=== PATIENT | male | born 1985 | race Caucasian/White ===

== ENCOUNTER → 2020-05-04 11:14 | Outpatient (BNVA) | payer BC, SELFPAY | PROVIDERS: PCP Internal Medicine; Referring Provider Internal Medicine; Visit Provider Dietitian, Registered | DX: K21.9 Gastro-esophageal reflux disease without esophagitis (principal); K58.9 Irritable bowel syndrome, unspecified; E66.9 Obesity, unspecified; Z68.33 Body mass index [BMI] 33.0-33.9, adult; Z71.3 Dietary counseling and surveillance | CPT/HCPCS: 97803 ==

== ENCOUNTER → 2020-05-07 15:47 | Outpatient (BNVA) | payer BC, SELFPAY | PROVIDERS: PCP Nurse Practitioner Family; Visit Provider Internal Medicine Gastroenterology | DX: Z76.89 Persons encountering health services in other specified circumstances (principal) ==

== ENCOUNTER → 2020-11-23 14:05 | Outpatient (BNVA) | payer BC, SELFPAY | PROVIDERS: Visit Provider Internal Medicine Gastroenterology ==

== ENCOUNTER 2021-01-06 06:19 | Outpatient (REF) | payer BC, SELFPAY ==
[2021-01-06 12:04] LABS: Alanine Aminotransferase 36 U/L (0-40); Albumin Level 4.4 g/dL (3.5-5.0); Alkaline Phosphatase 83 U/L (39-117); Anion Gap 11 (12-20); Aspartate Amino Transferase 19 U/L (5-37); Bilirubin Total 0.8 mg/dL (0.0-1.0); Blood Urea Nitrogen 14 mg/dL (9-16); Calcium 9.2 mg/dL (8.4-10.2); Carbon Dioxide 28 mmol/L (22-29); Chloride 103 mmol/L (96-108); Cholesterol 207 mg/dL; Estimated Glomerular Filt Rate > 60; Glucose Fasting 91 mg/dL (60-99); HDL Cholesterol 43 mg/dL; LDL Cholesterol Calculated 137 mg/dl; Potassium 3.9 mmol/L (3.3-5.1); Sodium 138 mmol/L (135-145); Total Protein 7.3 g/dL (6.5-8.0); Triglycerides 135 mg/dL
[2021-01-06 12:08] LABS: TSH reflex Free T4 1.75 uIU/mL (0.32-4.0)
[2021-01-12 09:18] LABS: Testosterone, Free 137.5 pg/mL (35.0-155.0); Testosterone, Total 603 ng/dL (250-1100)
== END 2021-01-06 06:20 | disposition home or self-care (01) ==
LOC: HO.HMGCLDS 06:19
PROVIDERS: PCP Nurse Practitioner Family; Visit Provider Nurse Practitioner Family
DX: Z00.00 Encounter for general adult medical examination without abnormal findings (principal)
CPT/HCPCS: 36415; 80053; 80061; 84402; 84403; 84443

== ENCOUNTER 2022-08-08 09:13 | Outpatient (REF) | payer BC, SELFPAY ==
[2022-08-08 11:19] LABS: MANUAL DIFF FLAG NO
[2022-08-08 11:32] LABS: Appearance Urine Clear; Color Urine Yellow; Glucose Urine UA Negative (Negative); Leukocyte Esterase Urine Negative (Negative); Nitrite Urine Negative (Negative); PH 6.5 (5.0-9.0); Urine Blood Negative (Negative); Urine Ketones Negative (Negative); Urine Protein Negative (Neg-Trace)
[2022-08-08 11:54] LABS: Basophils Absolute Auto 0.1 X10*3/uL (0.0-0.2); Basophils Percent Auto 0.8 % (0-2); Eosinophils Absolute Auto 0.2 X10*3/uL (0.0-0.4); Eosinophils Percent Auto 2.3 % (0-4); Hematocrit 48.7 % (42.0-52.0); Hemoglobin 16.7 g/dl (14.0-18.0); Imm Gran Abs Auto 0.03 X10*3/uL (0.00-0.03); Imm Gran Pct Auto 0.5 % (0.0-0.4); Lymphocytes Absolute Auto 2.6 X10*3/uL (1.2-4.9); Lymphocytes Percent Auto 39.2 % (20-40); Mean Corpuscular HGB Conc 34.3 g/dl (31.0-36.0); Mean Corpuscular Hemoglobin 32.2 pg (27.0-33.0); Mean Corpuscular Volume 93.8 fL (80.0-98.0); Mean Platelet Volume 9.4 fL (9.4-12.4); Monocytes Absolute Auto 0.8 X10*3/uL (0.1-1.2); Monocytes Percent Auto 12.7 % (2-11); Neutrophils Absolute Auto 2.9 x10*3/uL (2.0-8.3); Neutrophils Percent Auto 44.5 % (45-73); Platelet Count 279 X10*3/uL (160-400); Red Blood Count 5.19 X10*6/uL (4.60-5.80); Red Cell Distribution Width 12.1 % (11.0-16.0); White Blood Count 6.5 X10*3/uL (4.8-10.8)
[2022-08-08 13:55] LABS: Alanine Aminotransferase 39 U/L (0-40); Albumin Level 4.4 g/dL (3.5-5.0); Alkaline Phosphatase 88 U/L (39-117); Anion Gap 11 (12-20); Aspartate Amino Transferase 22 U/L (5-37); Bilirubin Total 0.7 mg/dL (0.0-1.0); Blood Urea Nitrogen 14 mg/dL (9-16); Calcium 9.5 mg/dL (8.4-10.2); Carbon Dioxide 29 mmol/L (22-29); Chloride 106 mmol/L (96-108); Cholesterol 199 mg/dL; Estimated Glomerular Filt Rate > 60; Glucose Fasting 104 mg/dL (60-99); HDL Cholesterol 50 mg/dL; LDL Cholesterol Calculated 126 mg/dl; Potassium 4.4 mmol/L (3.3-5.1); Sodium 142 mmol/L (135-145); Total Protein 7.4 g/dL (6.5-8.0); Triglycerides 117 mg/dL
[2022-08-08 14:13] LABS: TSH reflex Free T4 1.55 uIU/mL (0.32-4.0)
== END 2022-08-08 09:14 | disposition home or self-care (01) ==
LOC: HO.HMGCLDS 09:13
PROVIDERS: PCP Nurse Practitioner Family; Visit Provider Nurse Practitioner Family
DX: Z00.00 Encounter for general adult medical examination without abnormal findings (principal)
CPT/HCPCS: 36415; 80053; 80061; 81003; 84443; 85025

== ENCOUNTER 2023-07-20 15:23 | Outpatient (AMB) | payer BC, SELFPAY ==
--- NOTE | 2023-07-20 15:28 | MHC.PC.OV ---
Vital Signs 07/20/23 15:30 Height 5 ft 10 in Weight 230 lb BMI 33.0 BP 122/90 H Blood Pressure Location Lt brachial Position Sitting Pulse 102 H Pulse Source Pulse Oximeter Pulse Oximetry (%) 98 Oxygen Delivery Method Room Air Intake Visit Reasons: PE/MA r/s due to provider out Intake Note: Patient here for physical exam. Pt states he is getting over the flu but still has the cough present and would also like to talk about concentration issues while at work. Allergies No Known Allergies Allergy (Verified 07/20/23 15:33) Medication List - Last Reconciled 07/20/23 by MARSHAL Lozano clonazepam 0.5 mg PO DAILY fluoxetine 20 mg PO DAILY fluoxetine 40 mg PO DAILY omeprazole 20 mg PO DAILY 60 days Tobacco use date assessed: 07/20/23 Dental Screening Dental Screen Date: 07/20/23 Did you have a dental visit in the last 12 months?: Yes Did you have a dental problem in the last 6 months where you did not have access to dental care?: No Was dental information given to patient?: Patient has dentist HPI PE/MA r/s due to provider out HPI Details Pt is here for a PE. Will order labs. Pt reports a scalp cyst to the crown of his head. Will refer to general surgery. [facility] Medical History History of flexible sigmoidoscopy (08/01/19) Diverticulosis of colon Irritable bowel syndrome with diarrhea Esophageal dysphagia Surgical History Hx of appendectomy Hx of hernia repair History of esophagogastroduodenoscopy (EGD) (08/01/19) Family History Maternal Grandfather History of colon cancer Maternal Grandmother Hx of Parkinson's disease Paternal Grandfather Stroke Father Stroke Mother No problems noted. Social History Household Members Other:: parents Alcohol intake: current Alcohol intake frequency: holidays/special occasions only Patient Tobacco Use Status: Never used Tobacco (when he drinks ) e-Cigarette/Vaping Use: Never Used Second Hand Smoke Exposure: No service: No Current occupational status: employed Current occupation: Delivery [employer] Cognitive needs: No Hearing needs: No Vision needs: No Questionnaire PHQ-9 Over the last 2 weeks, how often have you been bothered by any of the following problems? 1. Little interest or pleasure in doing things: several days 2. Feeling down, depressed, or hopeless: more than half the days 3. Trouble falling or staying asleep, or sleeping too much: more than half the days 4. Feeling tired or having little energy: more than half the days 5. Poor appetite or overeating: several days 6. Feeling bad about yourself - or that you are a failure or have let yourself or your family down: several days 7. Trouble concentrating on things, such as reading the newspaper or watching television: several days 8. Moving or speaking so slowly that other people could have noticed. Or the opposite - being so fidgety or restless that you have been moving around a lot more than usual: not at all 9. Thoughts that you would be better off or of hurting yourself in some way: several days Total score: 11 Depression Screening Interpretation: Positive Depression Screening Done: Yes 58454 - PHQ-9 Billing: Yes Source: Developed by Drs. Herber Leyva, Della Lemon, Miles Holcomb and colleagues, with an educational phoebe from [employer]. Thrive Questionnaire Date Thrive assessed: 07/20/23 I am a: Patient What is your living situation today?: I have a steady place to live Within the past 12 months, did the food you bought not last and you didn't have the money to get more?: Never true Within the past 12 months, did you worry whether your food would run out before you got money to buy more?: Never true Do you have trouble paying for medicines?: No Do you have trouble getting transportation to medical appointments?: No Do you have trouble paying your heating and electricity bill?: No Do you have trouble taking care of your child, family member or friend?: No Do you have trouble with day-to-day activities such as bathing, preparing meals, shopping, managing finances, etc.?: No Are you currently unemployed and looking for a job?: No Are you interested in more education?: Yes AUDIT C Alcohol Use Questionnaire (AUDIT-C) 1. How often do you have a drink containing alcohol?: 2-4 times a month 2. How many drinks containing alcohol do you have on a typical day when you are drinking?: 1 or 2 3. How often do you have six or more drinks on one occasion?: Never Total Score: 2 Score Reviewed/Action Taken: No CARLA-7 AMB Questionnaire CARLA-7 Date CARLA - 7 assessed: 07/20/23 Feeling nervous, anxious, or on edge: 1 = Several days Not being able to stop or control worryin = Several days Worrying too much about different things: 1 = Several days Trouble relaxin = Several days Being so restless that it is hard to sit still: 1 = Several days Becoming easily annoyed or irritable: 0 = Not at all Feeling afraid as if something awful might happen: 0 = Not at all Total CARLA-7 score (0-4 normal; 5-9 mild; 10-14 moderate; 15-21 severe): 5 Source: Developed by Drs. Herber Leyva, Della Lemon, Miles Holcomb and colleagues, with an educational phoebe from [employer]. CARLA-7 Assessment Billing CARLA-7 Assessment Tool: CARLA-7 Assessment 39106 Review of Systems Const Denies chills and Denies fever(s) Eyes Denies blurry vision ENT Denies vertigo, Denies dizziness and Denies sore throat Card Denies chest pain at rest, Denies chest pain with activity, Denies diaphoresis, Denies dyspnea and Denies dyspnea on exertion Resp Denies cough, Denies dyspnea, Denies dyspnea on exertion and Denies wheezing GI Denies abdominal pain, Denies melena, Denies hematochezia, Denies constipation, Denies diarrhea and Denies loose stools Denies hematuria Musc Denies numbness and Denies tingling Skin/Breast Denies lesions Neuro Denies vertigo, Denies dizziness, Denies numbness and Denies tingling Psych Denies anxiety, Denies depression, Denies homicidal ideation, Denies suicidal ideation and Denies other (substance abuse) Aller/Immun Denies wheezing Physical exam (Primary Care) Vital Signs: Last Vital Signs Pulse 102 H 07/20/23 15:30 BP 122/90 H 07/20/23 15:30 Pulse Ox 98 07/20/23 15:30 Oxygen Delivery Method Room Air 07/20/23 15:30 BMI result Body Mass Index 33.0 Tobacco/Smoking Status: Tobacco use Status Tobacco use date assessed 07/20/23 07/20/23 15:36 Patient Tobacco Use Status Never used Tobacco (when he 07/20/23 15:36 drinks ) e-Cigarette/Vaping Use Never Used 07/20/23 15:29 Depression Screening Interpretation: Positive Thrive Assessment: Date of Thrive Assessment Date Thrive assessed 01/07/21 07/20/23 15:29 Const General: cooperative Nutritional Appearance: obese Orientation/consciousness: patient oriented x3 HENMT Head: Yes normal to inspection, Yes normocephalic and Yes atraumatic Ears: TM's normal bilaterally Eyes General: appearance normal, both eyes and all related structures Alignment and Position: alignment normal and position normal Neck Neck: Yes normal visual inspection and Yes no lymphadenopathy Thyroid: Thyroid normal Resp Effort & Inspection: normal respiratory effort Auscultation: clear to auscultation bilaterally Cardio Rate: regular rate Rhythm: regular rhythm Heart sounds: S1 normal heart sound present, S2 normal heart sound present and no murmurs GI Palpation (GI): Soft to palpation and nontender Auscultation: normal bowel sounds Male General Exam: Yes normal external exam Penis: normal penis Scrotum: scrotum normal, testes descended bilaterally and no inguinal hernias Testes: no testicular mass Skin Other: crown of head with scalp cyst, not tender with touch Rashes: no rashes Neuro General: patient oriented x3, moves all extremities, no focal motor deficits and deep tendon reflexes 2+ bilaterally Romberg Test: Negative Psych Appearance: grossly normal Mental Status: mental status grossly normal Speech and movement: Normal speech and movement present Affect: normal affect Attitude: cooperative Thought process: Normal thought process present Thought content: Normal thought content present Insight: Good insight present (Psych) Judgement: Good judgement present (Psych) Assessment and Plan Assessment & Plan (1) Physical exam: Code(s): Z00.00 - Encounter for general adult medical examination without abnormal findings Plan: Labs ordered (2) Scalp cyst: Code(s): L72.9 - Follicular cyst of the skin and subcutaneous tissue, unspecified Plan: Referred to general surgery (3) Elevated BP without diagnosis of hypertension: Code(s): R03.0 - Elevated blood-pressure reading, without diagnosis of hypertension Plan The patient agreed to the use of a director biomedical engineering for this encounter. Scribed for GINA Eaton-NICKO by Teresa Adams director biomedical engineering, on 07/20/2023 at 15:45 EST. Orders: Orders Complete Blood Count Auto Diff Today Z00.00 - Encounter for general adult medical examination without abnormal findings UA CC w/rflx Micro + Cult Today Z00.00 - Encounter for general adult medical examination without abnormal findings Lipid Panel Today Z00.00 - Encounter for general adult medical examination without abnormal findings Comprehensive [place]. Panel Fast Today Z00.00 - Encounter for general adult medical examination without abnormal findings TSH reflex Free T4 Today Z00.00 - Encounter for general adult medical examination without abnormal findings Referrals General Surgery Referral L72.9 - Follicular cyst of the skin and subcutaneous tissue, unspecified Coding Level of Care Code Est Pt Prev Care 18-39y(88653) Diagnoses Physical exam Z00.00 Scalp cyst L72.9 Elevated BP without diagnosis of hypertension R03.0 Additional Codes CARLA-7 Assessment Billing - CARLA-7 Assessment Tool: CARLA-7 Assessment 52560 ([id number])
[2023-07-20 15:30] VITALS: BP 122/90; PULSE 102; O2SAT 98; BMI 33.0
== END 2023-07-20 16:00 | disposition home or self-care (01) ==
PROVIDERS: PCP Nurse Practitioner Family; Visit Provider Nurse Practitioner Family
DX: Z00.00 Encounter for general adult medical examination without abnormal findings (principal); L72.9 Follicular cyst of the skin and subcutaneous tissue, unspecified; R03.0 Elevated blood-pressure reading, without diagnosis of hypertension
CPT/HCPCS: 99395

== ENCOUNTER 2024-11-15 08:08 | Outpatient (AMB) | payer BC, SELFPAY ==
--- NOTE | 2024-11-15 08:23 | AM.OFFVISNUR ---
Intake Visit Reasons: EP Sharp chest pain 1 month off and on Allergies No Known Allergies Allergy (Verified 07/20/23 15:33) Nursing Note Pt came into the [facility] clinic c/o intermittent chest pain (sharp) x 1 month. Pt stated chest pain at rest, ambulating, working. Pt stated that he takes medication Omeprazole and an non-drowsy allergy medication. Pt a/o x 3 speaks in full sentences. Vss 156/106(Left)-100-96% on room air. Lungs - cta. Heart sounds - regular. Pt stated that he has gained 30lbs within 6 months. CONNOR (Letty C.) aware. Pt is no apparent distress. Coding
--- NOTE | 2024-11-15 08:28 | AM.OFFWIN_ITS ---
Intake Vital Signs 11/15/24 08:30 Height 5 ft 10 in Weight 273 lb BMI 39.2 BP 132/90 H Blood Pressure Location Rt brachial Position Sitting Pulse 99 Pulse Source Pulse Oximeter Pulse Oximetry (%) 98 Oxygen Delivery Method Room Air Intake Visit Reasons: EP Sharp chest pain 1 month off and on Intake Note: Patient here for sharp chest pain that has been present on and off for about 1 month now. he states this has happened in the past and was seen by a die finisher. Patient Tobacco Use Status: Never used Tobacco (when he drinks ) Allergies No Known Allergies Allergy (Verified 11/15/24 08:31) Medication List - Last Reconciled 11/15/24 by Karen Bello MD cetirizine (Zyrtec) 10 mg PO DAILY PRN clonazepam 0.5 mg PO DAILY omeprazole 20 mg PO DAILY Do you need a note to return to daycare/school/sports/work: No HPI EP Sharp chest pain 1 month off and on HPI Details History - The patient is a 39-year-old male pres enting with sharp chest pain. - Reports intermittent sharp chest pains located to the left of the midline, approximately where his heart is located. - The chest pain began around one month ago and occurs randomly without a specific frequency or pattern; lasts for a split second to two seconds, sometimes occurring in clusters. - Describes the severity and quality as sharp, but denies any radiation to the arm, cheek, or chin. - Reports no association with physical a ctivity, eating, or changes in position such as laying down. - Similar symptoms were experienced appr oximately 10 years ago, at that time evaluated by a die finisher with an Electrocardiogram (EKG) performed and found to be normal. - Family history is significant for stro kes in the patient's father, occurring in his mid-40s, and paternal grandfather. 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 - Reports no pain upon movement of the a emeterio or taking a deep breath. - Current low-density lipoprotein (LDL) level is 126 mg/dL, with no reported history of cholesterol issues. Problem List - Sharp chest pain - Reflux (GERD) - Family history of cerebrovascular acci dent (CVA) - obesity with a BMI of 39 Patient Instructions - Continue taking omeprazole for reflux increase the dose to twice daily. - go through the stress test ordered - EKG is completed. Which came back wi thin normal limit - Report any changes in symptoms or incr eased frequency or severity of chest pain immediately. If chest pain gets worse go to emergency room Review of Systems - General: No fever no chills - Neurological: No headaches no dizziness - Ear nose throat: No sore throat no hearing difficulty no ear pain - Cardiovascular: No syncope, no palpitations - Gastrointestinal: No nausea vomiting or diarrhea - Endocrine: No polyuria polydipsia no heat intolerance - Genitourinary: No dysuria , no blood in urine Physical Exam - General: No acute distress - HEENT: No acute findings - Neck: Supple - Respiratory system: Able to talk in f ull sentences, no audible wheeze - Cardiovascular: S1-S2 regular in rate and rhythm - Gastrointestinal: No pain - Extremities: No new findings - RESIDENCE LEASING AGENT: Alert awake oriented x3 motor se nsory intact - Skin: Normal turgor PFSH Medical History History of flexible sigmoidoscopy (08/01/19) Diverticulosis of colon Irritable bowel syndrome with diarrhea Esophageal dysphagia Surgical History Hx of appendectomy Hx of hernia repair History of esophagogastroduodenoscopy (EGD) (08/01/19) Family History Maternal Grandfather History of colon cancer Maternal Grandmother Hx of Parkinson's disease Paternal Grandfather Stroke Father Stroke Mother No problems noted. Social History Household Members Other:: parents Alcohol intake: current Alcohol intake frequency: holidays/special occasions only Patient Tobacco Use Status: Never used Tobacco (when he drinks ) e-Cigarette/Vaping Use: Never Used Second Hand Smoke Exposure: No service: No Current occupational status: employed Current occupation: Delivery [employer] Cognitive needs: No Hearing needs: No Vision needs: No Physical Exam Vital Signs: Last Vital Signs Pulse 99 11/15/24 08:30 BP 132/90 H 11/15/24 08:30 Pulse Ox 98 11/15/24 08:30 Oxygen Delivery Method Room Air 11/15/24 08:30 Office Procedures EKG 24309-[id number], Complete Assessment & Plan Assessment & Plan (1) Chest pain: Code(s): R07.9 - Chest pain, unspecified Qualifiers: Chest pain type: precordial pain Qualified Code(s): R07.2 - Precordial pain (2) Gastro-esophageal reflux disease without esophagitis: Code(s): K21.9 - Gastro-esophageal reflux disease without esophagitis (3) Obesity due to excess calories: Code(s): E66.09 - Other obesity due to excess calories Qualifiers: Obesity classification: adult class 2 (BMI 35 - 39.9) Serious obesity comorbidity presence: without serious comorbidity Body mass index: BMI 39.0- 39.9 Qualified Code(s): E66.812 - Obesity, class 2; E66.09 - Other obesity due to excess calories; Z68.39 - Body mass index [BMI] 39.0-39.9, adult (4) Family history of stroke: Code(s): Z82.3 - Family history of stroke Plan History - The patient is a 39-year-old male presenting with sharp chest pain. - Reports intermittent sharp chest pains located to the left of the midline, approximately where his heart is located. - The chest pain began around one month ago and occurs randomly without a specific frequency or pattern; lasts for a split second to two seconds, sometimes occurring in clusters. - Describes the severity and quality as sharp, but denies any radiation to the arm, cheek, or chin. - Reports no association with physical activity, eating, or changes in position such as laying down. - Similar symptoms were experienced approximately 10 years ago, at that time evaluated by a die finisher with an Electrocardiogram (EKG) performed and found to be normal. - Family history is significant for strokes in the patient's father, occurring in his mid-40s, and paternal grandfather. 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 - Reports no pain upon movement of the arms or taking a deep breath. - Current low-density lipoprotein (LDL) level is 126 mg/dL, with no reported history of cholesterol issues. Problem List - Sharp chest pain - Reflux (GERD) - Family history of cerebrovascular accident (CVA) - obesity with a BMI of 39 Patient Instructions - Continue taking omeprazole for reflux increase the dose to twice daily. - go through the stress test ordered - EKG is completed. Which came back within normal limit - Report any changes in symptoms or increased frequency or severity of chest pain immediately. If chest pain gets worse go to emergency room Orders: Orders CA stress test Today R07.9 - Chest pain, unspecified Coding Level of Care Code Est Pt Level 4 (27746) Diagnoses Precordial pain R07.2 Chest pain type: precordial pain Gastro-esophageal reflux disease without esophagitis K21.9 Class 2 obesity due to excess calories without serious comorbidity with body mass index (BMI) of 39.0 to 39.9 in adult E66.812; E66.09; Z68.39 Obesity classification: adult class 2 (BMI 35 - 39.9) Serious obesity comorbidity presence: without serious comorbidity Body mass index: BMI 39.0-39.9 Family history of stroke Z82.3 CPT Codes EKG - CPT: 73607-[id number], Complete ([id number])
[2024-11-15 08:30] VITALS: BP 132/90; PULSE 99; O2SAT 98; BMI 39.2
== END 2024-11-15 09:15 | disposition home or self-care (01) ==
PROVIDERS: PCP Nurse Practitioner Family; Visit Provider Internal Medicine
DX: R07.2 Precordial pain (principal); K21.9 Gastro-esophageal reflux disease without esophagitis; E66.812 Obesity, class 2; E66.09 Other obesity due to excess calories; Z68.39 Body mass index [BMI] 39.0-39.9, adult; Z82.3 Family history of stroke

== ENCOUNTER → 2024-11-15 08:08 | Outpatient (BNVA) | payer BC, SELFPAY | PROVIDERS: PCP Nurse Practitioner Family; Visit Provider Internal Medicine | DX: R07.2 Precordial pain (principal); K21.9 Gastro-esophageal reflux disease without esophagitis; E66.812 Obesity, class 2; E66.09 Other obesity due to excess calories; Z68.39 Body mass index [BMI] 39.0-39.9, adult; Z79.899 Other long term (current) drug therapy; Z82.3 Family history of stroke | CPT/HCPCS: 93005 ==

== ENCOUNTER → 2025-01-07 08:08 | Outpatient (REF) | payer OTHER, SELFPAY ==
--- NOTE | 2025-01-07 08:11 | CA_ITS ---
Acquisition Time: 2025-01-07 08:19:28 Total Exercise Time: 00:07:38 Test Indications: CHEST PAIN Medications: Protocol: CONRADO Max HR: 153 BPM 84% of Pred: 181 BPM Max BP: 146/86 mmHG Max Work Load: 9.5 METS Exercise stress test with exercise 7 mins 38 secs of Conrado Protocol, achieving 84% MPHR, with reports of SOB, no chest pain, without any arrythmias, with normotensive response to exercise. Without EKG chnages meeting criteria for ischemia. In recovery, pt's breathing improved back to baseline. Test reviewed with Dr. Amado. Referred By: Karen Bello Electronically Signed By: Marcel Alonzo
== END ==
LOC: HO.CARD 08:08
PROVIDERS: Visit Provider Internal Medicine
DX: R07.9 Chest pain, unspecified (principal)
CPT/HCPCS: 93017

== ENCOUNTER → 2025-01-07 08:11 | Outpatient (BNV) | payer OTHER, SELFPAY | DX: R06.02 Shortness of breath (principal) | CPT/HCPCS: 93016; 93018 ==

== ENCOUNTER 2025-02-26 10:16 | Outpatient (REF) | payer OTHER, SELFPAY ==
[2025-02-26 13:24] LABS: MANUAL DIFF FLAG NO
[2025-02-26 13:38] LABS: Appearance Urine Clear; Glucose Urine UA Negative (Negative); PH 7.0 (5.0-9.0); Specific Gravity - Urine 1.020 (1.005-1.025)
[2025-02-26 13:43] LABS: Hematocrit 48.6 % (42.0-52.0); Hemoglobin 17.1 g/dl (14.0-18.0); Imm Gran Abs Auto 0.02 X10*3/uL (0.00-0.03); Imm Gran Pct Auto 0.3 % (0.0-0.4); Lymphocytes Absolute Auto 2.5 X10*3/uL (1.2-4.9); Mean Corpuscular HGB Conc 35.2 g/dl (31.0-36.0); Mean Corpuscular Hemoglobin 31.6 pg (27.0-33.0); Mean Corpuscular Volume 89.8 fL (80.0-98.0); NRBC Abs Auto 0.000 X10*3/uL (0.0-0.012); NRBC Pct Auto 0.0 /100WBC (0.0-0.2); Platelet Count 316 X10*3/uL (160-400); Red Blood Count 5.41 X10*6/uL (4.60-5.80); White Blood Count 6.2 X10*3/uL (4.8-10.8)
[2025-02-26 14:19] LABS: Alanine Aminotransferase 56 U/L (0-40); Albumin Level 4.6 g/dL (3.5-5.0); Alkaline Phosphatase 98 U/L (39-117); Anion Gap 12 (12-20); Aspartate Amino Transferase 33 U/L (5-37); Blood Urea Nitrogen 12 mg/dL (9-16); Calcium 9.3 mg/dL (8.4-10.2); Carbon Dioxide 24 mmol/L (22-29); Chloride 106 mmol/L (96-108); Cholesterol 203 mg/dL (<200); Estimated Glomerular Filt Rate > 60; HDL Cholesterol 39 mg/dL (>40); Potassium 4.0 mmol/L (3.3-5.1); Sodium 138 mmol/L (135-145); Total Protein 7.6 g/dL (6.5-8.0); Triglycerides 127 mg/dL (<150)
== END 2025-02-26 10:17 | disposition home or self-care (01) ==
LOC: HO.HMGCLDS 10:16
PROVIDERS: PCP Nurse Practitioner Family; Visit Provider Nurse Practitioner Family
DX: Z00.00 Encounter for general adult medical examination without abnormal findings (principal); L72.9 Follicular cyst of the skin and subcutaneous tissue, unspecified; R00.2 Palpitations; R07.2 Precordial pain; G47.33 Obstructive sleep apnea (adult) (pediatric); K42.9 Umbilical hernia without obstruction or gangrene
CPT/HCPCS: 36415; 80053; 80061; 81003; 84443; 85025; 96127

== ENCOUNTER 2025-02-26 10:16 | Outpatient (AMB) | payer OTHER, SELFPAY ==
[2025-02-26 10:23] VITALS: BP 142/100; PULSE 78; RESP 16; TEMP 36.9; O2SAT 98; BMI 38.7
--- NOTE | 2025-02-26 10:23 | A.OFFPC_ITS ---
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 Accompanied by: Self / Same As Patient Allergies No Known Allergies Allergy (Verified 11/15/24 08:31) Medication List - Last Reconciled 02/26/25 by GINA Lozano- cetirizine (Zyrtec) 10 mg PO DAILY PRN clonazepam 0.5 mg PO DAILY omeprazole 20 mg PO DAILY Tobacco use date assessed: 02/26/25 Dental Screening Dental Screen Date: 02/26/25 Did you have a dental visit in the last 12 months?: Yes Did you have a dental problem in the last 6 months where you did not have access to dental care?: No Was dental information given to patient?: Patient has dentist HPI Med.review HPI Details Chief Complaint The patient presents with chest discomfort and palpitations. History of Present Illness The patient is a 39-year-old male presenting with chest discomfort and palpitations. The chest pain is sharp, located in the sternal region, and lasts milliseconds, occurring intermittently without change with movement or palpation. Previous evaluations including an EKG and a stress test were benign, but symptoms persist. The patient also reports palpitations, prompting further investigation with an echocardiogram and a Holter monitor. Additionally, a large indurated cyst is present on the crown of the scalp. The patient acknowledges recent weight gain, potentially affecting his blood pressure, which remains stable. His diet has been off, affecting his weight. Hx of BAUTISTA, pt reports he is being told his snoring is excessive. Not using a cpap, could not tolerate it. WIll refer him back to sleep medicine, but i dont know what else can be done. Social History - Education: The patient is planning to attend nursing school. - Diet: The patient reports his diet has been off, contributing to weight gain. Health Maintenance - Weight management: Discussed the impac t of weight gain on blood pressure and the need for weight loss. Review of Systems - Cardiovascular: Reports chest pain and palpitations. Denies shortness of breath. - Gastrointestinal: Denies abdominal aziza n, blood in stool, constipation, or diarrhea. - Psychiatric: Denies suicidal or homici rula ideation. - General: Denies fever or chills. Physical Exam General: Cooperative, healthy appearing, comfortable, no acute distress and well developed Orientation: Patient oriented x3 Limitations: No limitations Head: indurated cyst on the crown of the scalp Ears: Hearing grossly normal bilaterally Nose: Normal external nose present Face and sinus: Normal facial exam Eyes: Appearance normal, both eyes and all related structures Neck: Normal visual inspection and Yes full ROM Respiratory: Normal respiratory effort and able to speak in complete sentences. Clear to auscultation bilaterally Cardiovascular: Regular rate and rhythm. Normal S1 and S2 GI: Normal to inspection. Soft to palpation and nontender Skin: No other rashes or lesions noted Neuro: Patient oriented x3 Extremities: Normal to inspection. no pain with palpation of sternum/or movement of upper torso side to side. Results - Tests and Diagnostics: EKG and stress test results were benign. Plan The plan includes obtaining an echocardiogram and a Holter monitor to further evaluate the patient's palpitations and chest discomfort. The patient is advised to focus on weight loss to help manage his blood pressure, which is currently on the higher side of normal. The large cyst on the scalp will be monitored, and further intervention will be considered if necessary. Discussion Notes I discussed with the patient the need for an echocardiogram and Holter monitor to further investigate his chest discomfort and palpitations. We also talked about the importance of weight management in controlling his blood pressure/sleep apnea. The patient understands the plan and agrees to follow up as needed. Patient Instructions - Follow up with an echocardiogram and H olter monitor as scheduled. - Focus on weight loss through diet and exercise to help manage blood pressure. - Monitor the cyst on the scalp and repo rt any changes. -follow up with sleep med COUNT INCLUDES [facility] Medical History History of flexible sigmoidoscopy (08/01/19) Diverticulosis of colon Irritable bowel syndrome with diarrhea Esophageal dysphagia Surgical History Hx of appendectomy Hx of hernia repair History of esophagogastroduodenoscopy (EGD) (08/01/19) Family History Maternal Grandfather History of colon cancer Maternal Grandmother Hx of Parkinson's disease Paternal Grandfather Stroke Father Stroke Mother No problems noted. Social History Household Members Other:: parents Alcohol intake: current Alcohol intake frequency: holidays/special occasions only Patient Tobacco Use Status: Never used Tobacco (when he drinks ) e-Cigarette/Vaping Use: Never Used Second Hand Smoke Exposure: No service: No Current occupational status: employed Current occupation: Delivery Insurance Cognitive needs: No Hearing needs: No Vision needs: No Questionnaire PHQ-9 Over the last 2 weeks, how often have you been bothered by any of the following problems? 1. Little interest or pleasure in doing things: more than half the days 2. Feeling down, depressed, or hopeless: more than half the days 3. Trouble falling or staying asleep, or sleeping too much: more than half the days 4. Feeling tired or having little energy: more than half the days 5. Poor appetite or overeating: not at all 6. Feeling bad about yourself - or that you are a failure or have let yourself or your family down: more than half the days 7. Trouble concentrating on things, such as reading the newspaper or watching television: not at all 8. Moving or speaking so slowly that other people could have noticed. Or the opposite - being so fidgety or restless that you have been moving around a lot more than usual: not at all 9. Thoughts that you would be better off or of hurting yourself in some way : more than half the days Total score: 12 Depression Screening Interpretation: Positive (denies any si or hi, pt is looking into finding a therapist) Depression Screening Follow-up: Existing condition Depression Screening Done: Yes 47126 - PHQ-9 Billing: Yes Source: Developed by Drs. Herber Leyva, Della Lemon, Miles Holcomb and colleagues, with an educational phoebe from [employer]. Thrive Questionnaire Date Thrive assessed: 02/24/25 I am a: Patient What is your living situation today?: I have a steady place to live Within the past 12 months, did the food you bought not last and you didn't have the money to get more?: Never true Within the past 12 months, did you worry whether your food would run out before you got money to buy more?: Never true Do you have trouble paying for medicines?: No Do you have trouble getting transportation to medical appointments?: No Do you have trouble paying your heating and electricity bill?: No Do you have trouble taking care of your child, family member or friend?: No Do you have trouble with day-to-day activities such as bathing, preparing meals, shopping, managing finances, etc.?: No Are you currently unemployed and looking for a job?: No Are you interested in more education?: No Please select the resources that you would like help with: None Currently or been in a relationship where the following occur: No concerns reported THRIVE Score: 0 AUDIT C Alcohol Use Questionnaire (AUDIT-C) 1. How often do you have a drink containing alcohol?: 2-4 times a month 2. How many drinks containing alcohol do you have on a typical day when you are drinking?: 1 or 2 3. How often do you have six or more drinks on one occasion?: Less than monthly Total Score: 3 Score Reviewed/Action Taken: Yes CARLA-7 AMB Questionnaire CARLA-7 Date CARLA - 7 assessed: 02/26/25 Feeling nervous, anxious, or on edge: 0 = Not at all Not being able to stop or control worryin = Not at all Worrying too much about different things: 1 = Several days Trouble relaxin = Several days Being so restless that it is hard to sit still: 1 = Several days Becoming easily annoyed or irritable: 1 = Several days Feeling afraid as if something awful might happen: 0 = Not at all Total CARLA-7 score (0-4 normal; 5-9 mild; 10-14 moderate; 15-21 severe): 4 Source: Developed by Drs. Herber Leyva, Della Lemon, Miles Holcomb and colleagues, with an educational phoebe from [employer]. CARLA-7 Assessment Billing CARLA-7 Assessment Tool: CARLA-7 Assessment 35468 (denies any si or hi) Physical exam (Primary Care) Vital Signs: Last Vital Signs Temp 98.4 F 02/26/25 10:23 Pulse 78 02/26/25 10:23 Resp 16 02/26/25 10:23 BP 142/100 H 02/26/25 10:23 Pulse Ox 98 02/26/25 10:23 Oxygen Delivery Method Room Air 02/26/25 10:23 BMI result Body Mass Index 38.7 Tobacco/Smoking Status: Tobacco use Status Tobacco use date assessed 02/26/25 02/26/25 10:28 Patient Tobacco Use Status Never used Tobacco (when he 02/26/25 10:28 drinks ) e-Cigarette/Vaping Use Never Used 02/26/25 10:28 PHQ-9: PHQ-9 Score PHQ-9: Total score 12 02/26/25 10:49 Depression Screening Interpretation: Positive (denies any si or hi, pt is looking into finding a therapist) Depression Screening Follow-up: Existing condition Thrive Assessment: Date of Thrive Assessment Date Thrive assessed 02/24/25 02/26/25 10:28 Currently or been in a relationship where the following occur: No concerns reported Coding Level of Care Code Est Pt Level 3 (27129) Est Pt Prev Care 18-39y(74667) Diagnoses Physical exam Z00.00 Scalp cyst L72.9 Palpitations R00.2 Precordial pain R07.2 Chest pain type: precordial pain BAUTISTA (obstructive sleep apnea) G47.33 Additional Codes PHQ-9 - 64708 - PHQ-9 Billing: Yes ([id number]) CARLA-7 Assessment Billing - CARLA-7 Assessment Tool: CARLA-7 Assessment 34295 ([id number]) Assessment & Plan Assessment & Plan (1) Physical exam: Code(s): Z00.00 - Encounter for general adult medical examination without abnormal findings Category: Medical (2) Scalp cyst: Code(s): L72.9 - Follicular cyst of the skin and subcutaneous tissue, unspecified Category: Medical (3) Palpitations: Code(s): R00.2 - Palpitations Category: Medical (4) Chest pain: Code(s): R07.9 - Chest pain, unspecified Category: Medical Qualifiers: Chest pain type: precordial pain Qualified Code(s): R07.2 - Precordial pain (5) BAUTSITA (obstructive sleep apnea): Code(s): G47.33 - Obstructive sleep apnea (adult) (pediatric) Category: Medical Plan . Orders: Orders Complete Blood Count Auto Diff Today Z00.00 - Encounter for general adult medical examination without abnormal findings Comprehensive Hawley. Panel Fast Today Z00.00 - Encounter for general adult medical examination without abnormal findings TSH reflex Free T4 Today Z00.00 - Encounter for general adult medical examination without abnormal findings UA CC w/rflx Micro + Cult Today Z00.00 - Encounter for general adult medical examination without abnormal findings Lipid Panel Today Z00.00 - Encounter for general adult medical examination without abnormal findings ECG 3 day holter monitor Today R00.2 - Palpitations CA echo transthoracic complete Today R00.2 - Palpitations, R07.2 - Precordial pain Referrals General Surgery Referral L72.9 - Follicular cyst of the skin and subcutaneous tissue, unspecified Sleep Medicine Referral G47.33 - Obstructive sleep apnea (adult) (pediatric)
--- OUTSIDE RECORDS SUMMARY | 2025-02-26 10:56 | XMS_ITS | Patient Health Record ---
[facility] Organization [facility] Address [address] [place] [id number] Care Team Providers Care Director Adult Name Role Phone Herber Tomlin Unavailable [phone] Reason For Referral No Information Plan Of Treatment No Information
[2025-02-26 11:08] VITALS: BP 132/88
== END 2025-02-26 11:21 | disposition home or self-care (01) ==
PROVIDERS: PCP Nurse Practitioner Family; Visit Provider Nurse Practitioner Family
DX: Z00.00 Encounter for general adult medical examination without abnormal findings (principal); L72.9 Follicular cyst of the skin and subcutaneous tissue, unspecified; R00.2 Palpitations; R07.2 Precordial pain; G47.33 Obstructive sleep apnea (adult) (pediatric)

== ENCOUNTER → 2025-04-18 10:50 | Outpatient (REF) | payer OTHER, SELFPAY ==
--- NOTE | 2025-04-18 10:54 | HM_ITS ---
Conclusion: 1. Patient was monitored for total period of 2 days and 21 hours 2. Baseline was normal sinus rhythm with average heart rate of 100 beats per minute 3. No significant pauses or tachyarrhythmias noted 4. Frequent sinus tachycardia noted 52% of the time heart rate about 100 beats per minute 5. Patient marked the counter 2 times correlating with sinus tachycardia MTDD
--- NOTE | 2025-04-18 10:54 | CA_ITS ---
Transthoracic Echocardiogram Patient (Last, First, Middle): Feliciano Valverde, Gender: Male Date of : 1985 Age: 39 Procedure Date: 04/18/2025 Procedure Type: Transthoracic Echocardiogram Location: OP Height: 177.8 cm Weight: 122.02 kg BSA: 2.37 m2 Heart Rate: bpm BP: 128 / 84 mmHg Properties Supervisor: TO Referring MD: Brando Wood [facility] Symptoms: R07.2 - Precordial pain Study Quality: Fair/Contrast ECG Rhythm: Sinus Conclusions: - The left ventricular systolic function is low normal. The visually estimated ejection fraction is between 50-55%. - Moderate focal hypertrophy of the basal septum. - No obvious valvular pathology seen on this study. Findings Procedure Information Contrast agent, definity, is being given per protocol without apparent complications. Left Ventricle Normal left ventricular cavity size. There is normal left ventricular wall thickness. The left ventricular systolic function is low normal. The visually estimated ejection fraction is between 50-55%. There is no evidence of regional wall motion abnormalities. Diastolic function is normal for age. Normal left ventricular filling pressures. Moderate focal hypertrophy of the basal septum. Right Ventricle Normal right ventricular cavity size and systolic function. Atria Both atria are normal in size. Aortic Valve There is a normal trileaflet aortic valve. There is no aortic valve stenosis. There is no aortic valve regurgitation. Mitral Valve The mitral valve appears normal. There is no mitral valve regurgitation. There is no mitral valve stenosis. Pulmonic Valve The pulmonic valve is likely normal. There is trace pulmonic valve regurgitation. Tricuspid Valve There is trace tricuspid valve regurgitation. There is no evidence of pulmonary hypertension. Great Vessels The asc aorta and aortic arch are normal in size. Venous The inferior vena cava was not well visualized. Pericardium/Pleural There is no evidence of pericardial effusion. Prior Study Comparison Changes noted compared to prior study dated: 04/24/2019. LVEF slightly lower. Recommendations, Care & Conclusions No obvious valvular pathology seen on this study. Measurements 2D Linear Measurements IVSd: 1.05 0.6-0.9/0.6-1.0 cm LVIDd: 5.12 3.9-5.3/4.2-5.9 cm LVIDd Index: 2.16 2.4-3.2/2.2-3.1 cm/m2 LVIDs: 3.79 2.0-3.6 cm LVPWd: 0.83 0.7-1.1 cm LA Diam: 3.40 2.7-3.8/3.0-4.0 cm LAIDs Index: 1.43 1.5-2.3 cm/m2 LV Mass: 217.29 67-162/88-224 g LV Mass Index: 91.68 43-95/49-115 g/m2 LVOT Diam: 2.40 3.0+(-)1.3 cm 2D Systolic Function EF 4C: 44.80 >55% EF 2C: 47.70 >55% EF BiP: 44.30 >55% Mitral Valve MV Pk E: 0.47 MV PK A: 0.62 MV Decel Time: 166.00 E/A: 0.80 E'Lateral: 8.49 E'Medial: 4.57 E/E' Med: 10.30 E/E' Lat: 5.50 PHT: 49.00 MVA PHT: 4.49 Decel Gordon: 2.83 Aortic Valve AoV Pk Carlos: 1.28 AoV Mn Carlos: 0.89 AoV VTI: 0.22 AoV Pk Grad: 7.00 Aov Mn Grad: 4.00 GUERRERO Cont.VTI: 3.16 LVOT LVOT Pk Carlos: 0.91 LVOT Mn Carlos: 0.63 LVOT VTI: 0.15 LVOT Pk Grad: 3.00 LVOT Mn Grad: 2.00 LVOT Diam: 2.40 LVOT Area: 4.52 Diastolic Function MV Pk E: 0.47 MV Pk A: 0.62 E/A: 0.80 E'Medial: 4.57 E/E' Med: 10.30 E' Laterial: 8.49 E/E' Lat: 5.50 Right Ventricle TAPSE (mm): 22.50 TVS' Carlos: 12.20 Tricuspid Valve TR Pk Carlos: 1.93 TR Pk Grad: 15.00 Great Vessels Aorta Sinus of Valsalva: 3.51 2.0-3.[address] Ridge: 2.89 1.7-3.4 cm Ao Asc: 3.50 2.1-3.4 cm Ao Arch: 3.20 Updated in Other Vendor System with Status of Final Dragan Amado MD electronically signed on 04/19/2025 3:52:28 PM with status of Final
--- OUTSIDE RECORDS SUMMARY | 2025-04-18 11:55 | XMS_ITS | Patient Health Record ---
Author Organization [facility] Address [address] [place] [id number] Care Team Providers Care Control Systems Eng Name Role Phone Herber Tomlin Unavailable [phone] Reason For Referral No Information Plan Of Treatment No Information
== END ==
LOC: HO.CARD 10:50
PROVIDERS: PCP Nurse Practitioner Family; Visit Provider Nurse Practitioner Family
DX: R07.2 Precordial pain (principal); R00.2 Palpitations
CPT/HCPCS: 93242; 93306; Q9957

== ENCOUNTER → 2025-04-18 10:54 | Outpatient (BNV) | payer OTHER, SELFPAY | PROVIDERS: PCP Nurse Practitioner Family; Visit Provider Internal Medicine | DX: I42.2 Other hypertrophic cardiomyopathy (principal) | CPT/HCPCS: 93306 ==

== ENCOUNTER 2025-05-07 08:32 | Outpatient (REF) | payer OTHER, SELFPAY ==
--- NOTE | ~2025-05-07 | US_ITS ---
CLINICAL HISTORY: R74.8 - Abnormal levels of other serum enzymes US abdomen complete with color Doppler Comparison: None Findings: The visualized pancreas, aorta, and inferior vena cava are unremarkable. Liver normal size and diffusely echogenic. Right lobe 17.5 cm length. No focal hepatic masses. Common duct 2.4 mm diameter. Physiologic distention of the gallbladder. No gallstones or sludge. No gallbladder wall thickening. No pericholecystic fluid. No sonographic Kenny sign. Main portal vein antegrade. Right kidney normal size, 12.4 cm in length. Normal cortical width and echotexture. No solid or cystic renal masses. No nephrolithiasis. No hydronephrosis. Left kidney normal, 12.4 cm in length. Normal cortical width and echotexture. No solid or cystic renal masses. No nephrolithiasis. No hydronephrosis. Spleen measures 12.5 cm. No splenic masses. No ascites. No lymphadenopathy. Impression: 1. Echogenic liver reflecting hepatic steatosis or diffuse hepatocellular disease. This document has been electronically signed by: Dimitri Estrada MD on 05/08/2025 09:21:26
--- OUTSIDE RECORDS SUMMARY | 2025-05-07 08:53 | XMS_ITS | Patient Health Record ---
[facility] Organization [facility] Address [address] [place] [id number] Care Team Providers Care Organic Extractions Technician Name Role Phone Herber Tomiln Unavailable [phone] Reason For Referral No Information Plan Of Treatment No Information
== END 2025-05-07 08:33 | disposition home or self-care (01) ==
LOC: HO.HMGCX 08:32
PROVIDERS: PCP Nurse Practitioner Family; Visit Provider Nurse Practitioner Family
DX: R74.8 Abnormal levels of other serum enzymes (principal)
CPT/HCPCS: 76700

== ENCOUNTER → 2025-05-07 08:38 | Outpatient (BNV) | payer OTHER, SELFPAY | PROVIDERS: PCP Nurse Practitioner Family; Visit Provider Radiology Diagnostic Radiology | DX: R74.8 Abnormal levels of other serum enzymes (principal) | CPT/HCPCS: 76700 ==

== ENCOUNTER 2025-05-16 11:14 | Outpatient (REF) | payer OTHER, SELFPAY ==
[2025-05-17 07:42] LABS: HBS Num1 235.55 mIU/mL (0-7.99); HBc Num1 0.12 S/CO (0.00-0.79); HBsAGNum1 0.40 S/CO (0.00-0.99); Hepatitis A Antibody IgM 0.21 Index (0-0.79); Hepatitis B Surface Antigen Negative (Negative); ~HepC Num1 0.17 S/CO (0.00-0.79); ~Hepatitis A Antibody IgM Nonreactive (Nonreactive); ~Hepatitis B Surface Antibody REACTIVE (Nonreactive); ~Hepatitis C Antibody Nonreactive (Nonreactive)
== END 2025-05-16 11:15 | disposition home or self-care (01) ==
LOC: HO.HMGCLDS 11:14
PROVIDERS: Absent Provider Nurse Practitioner Family; PCP Nurse Practitioner Family
DX: I10 Essential (primary) hypertension (principal); R74.8 Abnormal levels of other serum enzymes
CPT/HCPCS: 36415; 86704; 86706; 86709; 86803; 87340; 99499

== ENCOUNTER 2025-06-06 08:07 | Outpatient (AMB) | payer OTHER, SELFPAY ==
--- OUTSIDE RECORDS SUMMARY | 2025-06-06 08:11 | XMS_ITS | Patient Health Record ---
[facility] Address [address] [place] [id number] Care Team Providers Care Hat Sizer Name Role Phone Herber Tomlin Unavailable [phone] Reason For Referral No Information Plan Of Treatment No Information
--- NOTE | 2025-06-06 08:23 | MHC.OFFVIS ---
Vital Signs 06/06/25 08:30 Height 5 ft 10 in Weight 266 lb BMI 38.2 BP 145/87 H Blood Pressure Location Rt brachial Position Sitting Pulse 103 H Intake Visit Reasons: Follicular cyst of skin Intake Note: Patient referred by PCP Brando FUENTES for evaluation of cyst on scalp. Present for 10-15yrs. Patient c/o: bothersome, painful when pressing down on it. Denies trauma. 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 The cyst has been present for approximately 10 to 15 years and has not drained, caused pain, or become infected. The patient has not had any prior surgical interventions for this condition. The patient reports noticing smaller cysts on the scalp, which have not been problematic. The patient is aware that these smaller cysts may resolve spontaneously or could require intervention if they become problematic. FOR[facility]LY [facility], [facility] Medical History Fatty liver History of flexible sigmoidoscopy (08/01/19) Diverticulosis of colon Irritable bowel syndrome with diarrhea Esophageal dysphagia Surgical History Hx of appendectomy Hx of hernia repair History of esophagogastroduodenoscopy (EGD) (08/01/19) Family History Maternal Grandfather History of colon cancer Maternal Grandmother Hx of Parkinson's disease Paternal Grandfather Stroke Father Stroke Mother No problems noted. Social History Household Members Other:: parents Alcohol intake: current Alcohol intake frequency: holidays/special occasions only Patient Tobacco Use Status: Never used Tobacco (when he drinks ) e-Cigarette/Vaping Use: Never Used Second Hand Smoke Exposure: No service: No Current occupational status: employed Current occupation: Delivery [employer] Cognitive needs: No Hearing needs: No Vision needs: No Review of Systems Const All systems reviewed & are unremarkable except as noted in HPI and below Physical Exam Vital Signs: Last Vital Signs Pulse 103 H 06/06/25 08:30 BP 145/87 H 06/06/25 08:30 BMI result Body Mass Index 38.2 Const General: cooperative, healthy appearing, comfortable and no acute distress Orientation/consciousness: oriented to person, oriented to place and oriented to time HEENT Head: Yes normal to inspection and Yes normocephalic Head images:  1. 3cm soft cystic structure Ears: hearing grossly normal bilaterally Eyes General: appearance normal, both eyes and all related structures Pupils: Equal, round and reactive pupils present EOM: EOMs intact bilaterally Neck Neck: Yes normal visual inspection Chest Chest palpation & inspection: normal inspection of the chest Resp Effort & Inspection: normal respiratory effort and able to speak in complete sentences Back/Spine/Pelvis Cervical Spine: normal cervical lordosis Thoracic/Lumbar Spine: thoracic and lumbar spine normal to inspection Neuro General: oriented to person, oriented to place and oriented to time Cranial nerves: Yes Equal, round and reactive pupils present Extrem General: Yes normal to inspection Assessment & Plan Assessment & Plan (1) Pilar cyst: Code(s): L72.11 - Pilar cyst Category: Medical Plan: The patient has a pylar cyst on the scalp, which has been present for 10 to 15 years without any episodes of drainage, pain, or infection. The plan is to perform a minor surgical procedure to excise the cyst under local anesthesia. The patient was informed about the risks of the procedure, including bleeding, infection, pain, scarring, and possible recurrence. The patient agreed to proceed with the surgical removal of the cyst. Coding Level of Care Code New Pt Level 3 (55873) Diagnoses Pilar cyst L72.11 Time Spent (min) 30
[2025-06-06 08:30] VITALS: BP 145/87; PULSE 103; BMI 38.2
== END 2025-06-06 08:45 | disposition home or self-care (01) ==
LOC: HO.HGS 08:08
PROVIDERS: PCP Nurse Practitioner Family; Visit Provider Surgery
DX: L72.11 Pilar cyst (principal)
CPT/HCPCS: 99203

== ENCOUNTER 2025-06-11 13:41 | Outpatient (REF) | payer OTHER, SELFPAY ==
[2025-06-11 13:30] VITALS: BP 154/103; PULSE 106; RESP 19; TEMP 36.3; O2SAT 94; BMI 38.0
--- NOTE | 2025-06-11 14:25 | W.PM.OPN ---
Operative Note Operative Note Date of Service: 06/11/25 Narrative: Preoperative diagnosis pilar cyst of the scalp Postoperative diagnosis same Procedure excision of pilar cyst of the scalp Estimated blood loss minimal Findings 2-3 cm diameter cystic structure filled with sebaceous material consistent with a pilar cyst Specimen pilar cyst The patient was brought to the minor procedure room is situated on the table. He is identified and a time-out was performed. The crown of his scalp was then prepped and draped in a standard sterile fashion. Once this was done approximately 15 cc of lidocaine with epinephrine were infused in the skin and soft tissue around the region of a previously identified cystic structure the crown of his scalp. After this was done approximate 2 cm long stab incision was created following Papa's lines of the skin in the direction of the hair growth directly over the cyst. Dissection was carried down through the scalp skin until the pearly white wall of the cystic structure was encountered. It was completely mobilized from the surrounding soft tissue attachments with a combination of blunt and sharp dissection and then passed off table as a specimen. No other cysts were encountered. Hemostasis was achieved with direct pressure. The skin was then closed with a 4-0 Polysorb in a buried subcuticular fashion. Bacitracin ointment was then placed over the incision. The patient tolerated procedure well. Instructions for his continuing care were given to him and he indicated that he understood and would follow through with the plan as it was outlined to him.
== END 2025-06-11 13:42 | disposition home or self-care (01) ==
LOC: HO.MS 13:41
PROVIDERS: PCP Nurse Practitioner Family; Visit Provider Surgery
PROC: (CPT 11423; principal; 2025-06-11 14:00)
DX: L72.11 Pilar cyst (principal)
CPT/HCPCS: 11423; 88304; J2004

== ENCOUNTER → 2025-06-11 13:41 | Outpatient (BNV) | payer OTHER, SELFPAY | PROVIDERS: PCP Nurse Practitioner Family; Visit Provider Surgery | DX: L72.11 Pilar cyst (principal) | CPT/HCPCS: 11423 ==

== ENCOUNTER 2025-06-25 09:26 | Outpatient (AMB) | payer OTHER, SELFPAY ==
--- NOTE | 2025-06-25 09:34 | MHC.OFFVIS ---
Vital Signs 06/25/25 09:41 Height 5 ft 10 in Weight 244 lb BMI 35.0 BP 125/85 Blood Pressure Location Lt brachial Position Sitting Pulse 108 H Intake Visit Reasons: s/p Follicular cyst of skin Intake Note: Patient is seen in office for post op assessment post excision of pilar cyst of the scalp. Pt c/o: denies any concerns, healing as expected surgery: 06/11/25 (SHARON) Chinese Language Professor Required: No Accompanied by: Self / Same As Patient Allergies No Known Allergies Allergy (Verified 06/25/25 09:34) HPI HPI s/p Follicular cyst of skin: Details: Doing well, no concerns. Initially had some very light bleeding the 1st day but this has resolved. He denies pain. Denies fevers chills. Wants to know when he can get a haircut [facility] Medical History Fatty liver History of flexible sigmoidoscopy (08/01/19) Diverticulosis of colon Irritable bowel syndrome with diarrhea Esophageal dysphagia Surgical History (Updated 06/25/25 @ 09:53 by Trey Reyes PA-C) Hx of excision of mass (06/11/25) Hx of appendectomy Hx of hernia repair History of esophagogastroduodenoscopy (EGD) (08/01/19) Family History Maternal Grandfather History of colon cancer Maternal Grandmother Hx of Parkinson's disease Paternal Grandfather Stroke Father Stroke Mother No problems noted. Social History Household Members Other:: parents Alcohol intake: current Alcohol intake frequency: holidays/special occasions only Patient Tobacco Use Status: Never used Tobacco e-Cigarette/Vaping Use: Never Used Second Hand Smoke Exposure: No service: No Current occupational status: employed Current occupation: [employer] Cognitive needs: No Hearing needs: No Vision needs: No Review of Systems Const All systems reviewed & are unremarkable except as noted in HPI and below Physical Exam Vital Signs: Last Vital Signs Pulse 108 H 06/25/25 09:41 BP 125/85 06/25/25 09:41 BMI result Body Mass Index 35.0 Const General: comfortable and no acute distress Orientation/consciousness: patient oriented x3 HEENT Other: Cyst excision sites scalp: Well healed excision site. Very small 2 mm scab. No surrounding erythema, no fluid collection, nontender. Neuro General: patient oriented x3 Assessment & Plan Assessment & Plan (1) Hx of excision of mass: Onset Date: 06/11/25 Comment: Mario Coats MD Pilar cyst scalp, 06/11/2025 Code(s): Z98.890 - Other specified postprocedural states Category: Surgical Plan 39-year-old male s/p excision of Pilar cyst on scalp returning to the office for wound check. Patient doing well, no concerns. Initially had some bleeding that it has resolved. Denies fevers at home. Denies pain at the excision site. On exam the site appears well healed, there was a small scab, advised him not to pick this. We reviewed pathology report showing Pilar cyst, no carcinoma detected. In regards to hair cuts, patient is okay to get a haircut at this point. As long as he is not shaving his head which may cause injury to the excision site. No longer requiring follow up, can follow up as needed with any concerns in the future. Coding Level of Care Code Est Pt Level 4 (28420) Diagnoses Hx of excision of mass Z98.890
[2025-06-25 09:41] VITALS: BP 125/85; PULSE 108; BMI 35.0
== END 2025-06-25 09:51 | disposition home or self-care (01) ==
LOC: HO.HGS 09:27
PROVIDERS: PCP Nurse Practitioner Family
DX: Z98.890 Other specified postprocedural states (principal)
CPT/HCPCS: 99214